=== PATIENT | female | born 1960 | race Caucasian/White ===

== ENCOUNTER 2017-05-17 16:44 | Emergency (ER) | payer BC ==
[~2017-05-17] VITALS: Ht 177.8 cm; Wt 80.0 kg
[2017-05-17 16:46] VITALS: Ht 177.8 cm; Wt 80.0 kg
[2017-05-17] MEDS ORDERED: NITROGLYCERIN 0.4 MG SL PER TAB CHARGE SL STA (16:54)
[2017-05-17] MEDS ORDERED: LORAZEPAM 2 MG/ML 1 ML VIAL IV STA (16:54)
[2017-05-17] MEDS ORDERED: GLUCAGON FOR INJ 1 MG VIAL IV STA (16:54)
[2017-05-17] MEDS ORDERED: SODIUM CHLORIDE 0.9% 500ML 500 ML IV STA (16:54)
--- NOTE | 2017-05-17 17:04 | EMERGENCY ROOM VISIT NOTE ---
History Report prepared by Janice: Norm Santoyo Under the Supervision of: Dr. Edgar Clements M.D. First contact with patient: 16:48 Chief Complaint: FOOD BOLUS Stated Complaint: FOOD STUCK AT BOTTOM OF ESOPHAGUS Nursing Triage Summary: food bolus after eating steak 2 pm History of Present Illness The patient is a 56 year old female who presents to the Emergency Room with complaints of a constant food bolus in her lower esophagus starting around 2 hours ago while eating steak. She currently rates her discomfort as a 3/10 in severity, and she has been spitting up her saliva though not vomiting. The patient states that this has happened before, though it can usually resolve with just drinking water. She states that she has come to the ED twice before for similar episodes. The first time it resolved after medication, and the other time she was scoped. She has had her esophagus dilated in the past. She states that she does not take any medications, and she does not have reflux. The patient additionally notes that she has been having diarrhea for a month. She states that she had a colonoscopy in the past. Source of History: patient Onset: two hours ago Position: other (esophagus) Symptom Intensity: 3/10 Quality: other (food bolus) Timing: constant Associated Symptoms: + diarrhea, No vomiting Note: Associated symptoms: Spitting up Review of Systems See HPI for pertinent positives & negatives. A total of 10 systems reviewed and were otherwise negative. Past Medical & Surgical Medical Problems: (1) Impacted foreign body in esophagus Surgical Problems: (1) H/O: hysterectomy Family History Cancer FH: heart disease FHx: gallbladder disease Hypertension Social History Smoking Status: Never Smoker Alcohol Use: occasionally Housing Status: lives with family Current/Historical Medications Scheduled [Bio-InThrMazyme Forte], 1 CAP PO DAILY Allergies Coded Allergies: Ibuprofen (Unverified Allergy, Mild, 05/17/17) Aspirin (Unverified Adverse Reaction, Severe, STOMACH ACHE, 05/17/17) Physical Exam Vital Signs Date Time Temp Pulse Resp B/P (MAP) Pulse Ox O2 Delivery O2 Flow Rate FiO2 05/17/17 18:01 66 14 133/72 98 Room Air 05/17/17 17:26 84 05/17/17 16:46 36.9 61 18 124/77 99 Physical Exam GENERAL: Patient is in no acute distress. HEENT: Spitting out her saliva. No acute trauma, normocephalic atraumatic, mucous membranes moist, no nasal congestion, no scleral icterus. NECK: No stridor, no adenopathy, no meningismus, trachea is midline. LUNGS: Clear to auscultation bilaterally, no wheeze, no rhonchi, breath sounds equal. HEART: Without murmurs gallops or rubs, regular rate and rhythm. ABDOMEN: Soft, nontender, bowel sounds positive, no hernias, no peritonitis. EXTREMITIES: No cyanosis or edema, full range of motion of all the joints without pain or difficulty, no signs for acute trauma. NEUROLOGIC: Oriented x 3, no acute motor or sensory deficits, no focal weakness. SKIN: No rash, no jaundice, no diaphoresis. Medical Decision & Procedures Medications Administered Medications (Trade) Dose Ordered Sig/Safia Route Start Time Stop Time Status Last Admin Dose Admin Sodium Chloride 500 ml @ 999 mls/hr Q31M STAT IV 05/17/17 16:54 05/17/17 17:24 DC 05/17/17 16:54 999 MLS/HR Lorazepam (Ativan Inj) 1 mg NOW STAT IV 05/17/17 16:54 05/17/17 17:00 DC 05/17/17 16:54 1 MG Glucagon (Glucagon Inj) 2 mg NOW STAT IV 05/17/17 16:54 05/17/17 17:00 DC 05/17/17 16:54 2 MG Nitroglycerin (Nitrostat Tab) 0.4 mg 1654 STAT SL 05/17/17 16:54 05/17/17 17:00 DC 05/17/17 16:54 0.4 MG ED Course 1648: The patient was evaluated in room A9. A complete history and physical exam was performed. 1654: Nitrostat Tab 0.4mg SL, Glucagon Inj 2mg IV, Ativan Inj 1mg IV, Sodium Chloride 500 ml @ 999 mls/hr IV 1742: I revaluated the patient, and I discussed the treatment plan with the patient, and she was agreeable. 1755: I discussed the patient's case with Dr. Mayorga, Gastroenterology, and he is going to take the patient to the endoscopy suite for further treatment. Medical Decision Differential diagnoses include: Esophageal food bolus, esophageal narrowing, esophageal stricture, and reflux. The patient presents with 2 hours of a sensation that her esophagus is blocked. She was eating steak and feels something caught in the lower esophagus. She has had issues with esophageal food boluses in the past and in the past, has had one esophageal dilatation. The patient is spitting out her saliva. She is not short of breath, she did not have any choking episodes. The patient was given IV saline, IV Ativan, IV glucagon and sublingual nitroglycerin, she did not have any relief of her symptoms with this medication. I spoke to the on-call GI doctor. The patient is being taken to the endoscopy suite. Consults Time Called: 1744 Consulting Physician: Dr. Mayorga, Gastroenterology Returned Call: [phone] I discussed the patient's case with Dr. Mayorga, Gastroenterology, and he is going to take the patient to the endoscopy suite. Impression Primary Impression: Esophageal obstruction due to food impaction Scribe Attestation The scribe's documentation has been prepared under my direction and personally reviewed by me in its entirety. I confirm that the note above accurately reflects all work, treatment, procedures, and medical decision making performed by me. Departure Information Dispostion Still a Patient Referrals Raine Harding M.D. (PCP) Patient Instructions My [facility]
[2017-05-17] MEDS ORDERED: [UNRECOGNIZED DRUG - OTHER] PO (18:00)
[2017-05-17 18:01] VITALS: O2SAT 98
--- NOTE | 2017-05-17 19:18 | Gastrointestinal Consultation ---
Gastrointestinal Consultation Date of Consultation: May 17, 2017 Attending Physician: Dr. Clements Consulting Physician: Dr. Mayorga Reason for Consultation: Food Impaction History of Present Illness Patient is a 56 year old female with history of esophageal stricture who presented to the ER this afternoon following a steak dinner. She states that she developed acute dysphagia, and has not been able to tolerate her own secretions. She does complain of excessive salivation at this time. Attempts were made in the ER to have the food bolus pass spontaneously after administration of anxiolytics, however they were not successful. She denies any history of GERD and has not been taking any PPI or H2RA therapy on a daily basis. Past Medical/Surgical History Medical Problems: (1) Esophageal obstruction due to food impaction Status: Acute (2) Food impaction of esophagus Status: Acute Family History Cancer FH: heart disease FHx: gallbladder disease Hypertension Social History Smoking Status: Never Smoker Alcohol Use: occasionally Housing Status: lives with family Allergies Coded Allergies: Ibuprofen (Unverified Allergy, Mild, 05/17/17) Aspirin (Unverified Adverse Reaction, Severe, STOMACH ACHE, 05/17/17) Current Medications Home Meds and Scripts Medications Dose Route/Sig Max Daily Dose Days Date Category [Bio-Immunozyme Forte] 1 Cap PO DAILY 05/17/17 Reported Review of Systems Constitutional: No fever, No chills Eyes: No eye pain ENT: + trouble swallowing, No unusual epistaxis, No pain on swallowing Respiratory: No cough, No sputum, No wheezing Cardiac: No chest pain Abdomen: + vomiting, + dysphagia, No pain, No nausea, No GI bleeding, No jaundice Musculoskeletal: No joint pain Female : No dysuria, No hematuria Psych: No depression symptoms Endo: No fatigue Physical Exam Date Time Temp Pulse Resp B/P (MAP) Pulse Ox O2 Delivery O2 Flow Rate FiO2 05/17/17 18:01 66 14 133/72 98 Room Air 05/17/17 17:26 84 05/17/17 16:46 36.9 61 18 124/77 99 General Appearance: + mild distress Eyes: PERRL, EOMI ENT: hearing grossly normal Neck: supple, no adenopathy Respiratory/Chest: lungs clear Cardiovascular: regular rate, rhythm Abdomen: normal bowel sounds, non tender, soft Impression Patient is a 56 year old female with acute dysphagia with food impaction and history of esophageal stricture. Plan Emergent EGD now Recommend PPI therapy daily as patient has had recurrent food impactions (last Oct 2015) Recommend followup in our office as outpatient for further evaluation and recommendations.
[2017-05-17] MEDS ORDERED: FENTANYL CITRATE INJ 50 MCG/1 ML 2 ML VIAL ONE ×2 (19:26)
[2017-05-17] MEDS ORDERED: SUCCINYLCHOLINE CHLORIDE 20 MG/ML 10 ML VIAL IV ONE (19:44)
[2017-05-17] MEDS ORDERED: PROPOFOL IV EMULSION 10 MG/ML 20 ML VIAL IV ONE ×2 (19:44)
[2017-05-17] MEDS ORDERED: LIDOCAINE HCL 2% 2 ML VIAL (20MG/ML) ONE (19:44)
[2017-05-17] MEDS ORDERED: ONDANSETRON INJ 2 MG/ML 2 ML VIAL ONE (19:44)
--- NOTE | 2017-05-17 19:49 | GI REPORT ---
Procedure Date: 05/17/2017 6:57 PM Procedure: Upper GI endoscopy Indications: Therapeutic procedure, Foreign body in the esophagus Medicines: Monitored Anesthesia Care Complications: No immediate complications. Estimated Blood Loss: Estimated blood loss: none. Procedure: Pre-Anesthesia Assessment: - Prior to the procedure, a History and Physical was performed, and patient medications and allergies were reviewed. The patient's tolerance of previous anesthesia was also reviewed. The risks and benefits of the procedure and the sedation options and risks were discussed with the patient. All questions were answered, and informed consent was obtained. Prior Anticoagulants: The patient has taken no previous anticoagulant or antiplatelet agents. ASA Grade Assessment: E - Emergency. After reviewing the risks and benefits, the patient was deemed in satisfactory condition to undergo the procedure. After obtaining informed consent, the endoscope was passed under direct vision. Throughout the procedure, the patient's blood pressure, pulse, and oxygen saturations were monitored continuously. The scope was introduced through the mouth, and advanced to the second part of duodenum. The upper GI endoscopy was accomplished without difficulty. The patient tolerated the procedure well. Findings: Food was found in the lower third of the esophagus. Removal of food was accomplished with gentle push technique. There was a mild dilation of the distal esophagus. The stomach was normal. The examined duodenum was normal. Impression: - Food in the lower third of the esophagus. Removal was successful. - Normal stomach. - Normal examined duodenum. Recommendation: - Soft diet for 5 days. - Use Protonix (pantoprazole) 40 mg PO daily. - Return to GI office in 2 weeks. Grzegorz Mayorga, 05/17/2017 7:48:04 PM This report has been signed electronically. Note Initiated On: 05/17/2017 6:57 PM I attest to the content of the Intraoperative Record and orders documented therein, exceptions below
--- NOTE | 2017-05-17 19:51 | Discharge Instructions ---
Endoscopy Patient Instructions Date / Procedure(s) Performed May 17, 2017. EGD Allergy Information Coded Allergies: Ibuprofen (Unverified Allergy, Mild, 05/17/17) Aspirin (Unverified Adverse Reaction, Severe, STOMACH ACHE, 05/17/17) Discharge Date / Findings May 17, 2017. Food impaction s/p removal via gentle push technique Mild dilation performed at distal esophagus. Medication Instructions Start Pantoprazole 40mg by mouth each morning 1/2 hour prior to breakfast. Provider Instructions Activity Restrictions - No exercising or heavy lifting for 24 hours. - Do not drink alcohol the day of the procedure. - Do not drive a car or operate machinery until the day after the procedure. - Do not make any important decisions or sign important papers in 24 hours after the procedure. Following Day: - Return to full activity which may include returning to work/school. Diet Start your diet with liquids and light foods (jello, soup, juice, toast). Then eat your usual diet if not nauseated. Treatment For Common After Affects For mild abdominal pain, bloating, or excessive gas: - Rest - Eat lightly - Lie on right side Follow-Up Information Follow-up in my office in 2 weeks. Call for appointment. Anesthesia Information What You Should Know You have had a procedure that required some medicine to reduce anxiety and discomfort. This treatment is called moderate sedation. After receiving the treatment, you may be sleepy, but you will be able to breathe on your own. The effects of the treatment may last for several hours. Follow these instructions along with Activity/Diet recommendations noted above: * Do NOT do anything where dizziness or clumsiness would be dangerous. * Rest quietly at home today, then you can be up and about tomorrow. * Have a responsible person stay with you the rest of today. * You may have had an I.V. today. If so, you may take the dressing off later today. Recommendations Call your doctor if: * Trouble breathing * Continuous vomiting for more than 24 hours * Temperature above 101 degrees * Severe abdominal pain or bloating * Pain not relieved by pain medicine ordered * There is increased drainage or redness from any incision * A large amount of rectal bleeding greater than 2-3 tablespoons. (If you had a polyp/s removed or have hemorrhoids, a small amount of blood - from the rectum is to be expected.) * You have any unanswered questions or concerns. IN THE EVENT OF A SERIOUS EMERGENCY, GO TO THE NEAREST EMERGENCY ROOM Your discharge instructions were prepared by provider Grzegorz Mayorga. Patient Instructions Signature Page No Faustin Patient (or Guardian) Signature/Date: I have read and understand the instructions given to me by my caregivers. Caregiver/RN/Doctor Signature/Date: The above-named patient and/or guardian has received patient instructions on this date. + Original Patient Signature Page (only) stays with chart. Please make copy for patient.
[2017-05-17] MEDS ORDERED: ONDANSETRON INJ 2 MG/ML 2 ML VIAL IV PRN (20:00)
[2017-05-17] MEDS ORDERED: EpHEDrine SULFATE INJ 50 MG/ML AMP IV PRN (20:00)
[2017-05-17] MEDS ORDERED: FENTANYL CITRATE INJ 50 MCG/1 ML 2 ML VIAL IV PRN (20:00)
[2017-05-17] MEDS ORDERED: ATROPINE SULFATE 0.1 MG/ML 5ML SYR IV PRN (20:00)
[2017-05-17 20:32] VITALS: BP 110/71; PULSE 82; TEMP 36.7; O2SAT 95
--- NOTE | 2017-05-17 20:39 | Anesthesiology Progress Note ---
Anesthesia Post Op Note Date & Time May 17, 2017 at 20:39 Vital Signs Pain Intensity: 0 Vital Signs Past 12 Hours Date Time Temp Pulse Resp B/P (MAP) Pulse Ox O2 Delivery O2 Flow Rate FiO2 05/17/17 20:32 36.7 82 18 110/71 95 Room Air 05/17/17 20:30 36.7 76 16 111/72 93 Room Air 05/17/17 20:20 79 16 113/73 93 Room Air 05/17/17 20:10 88 16 114/71 95 Nasal Cannula 2 05/17/17 20:00 98 16 115/75 94 Nasal Cannula 2 05/17/17 19:52 36.6 94 16 116/77 94 Nasal Cannula 2 05/17/17 18:01 66 14 133/72 98 Room Air 05/17/17 17:26 84 05/17/17 16:46 36.9 61 18 124/77 99 Notes Mental Status: alert / awake / arousable, participated in evaluation Pt Amnestic to Procedure: Yes Nausea / Vomiting: adequately controlled Pain: adequately controlled Airway Patency, RR, SpO2: stable & adequate BP & HR: stable & adequate Hydration State: stable & adequate Anesthetic Complications: no major complications apparent
[2017-05-17 21:00] VITALS: BP 110/70; PULSE 72; TEMP 36.6; O2SAT 94
== END 2017-05-17 19:51 | disposition home or self-care (01) ==
LOC: C.EDB 16:45 → C.EDA 19:51
DX: T18.128A Food in esophagus causing other injury, initial encounter (principal); X58.XXXA Exposure to other specified factors, initial encounter; Z90.710 Acquired absence of both cervix and uterus; Z88.6 Allergy status to analgesic agent; Z88.8 Allergy status to other drugs, medicaments and biological substances; Z80.9 Family history of malignant neoplasm, unspecified; Z82.49 Family history of ischemic heart disease and other diseases of the circulatory system; Z83.79 Family history of other diseases of the digestive system

== ENCOUNTER → 2017-12-30 | Outpatient (CLI) | payer OTHER ==
[~2017-12-30] MED LIST: [UNRECOGNIZED DRUG - OTHER] PO
== END | disposition home or self-care (01) ==
LOC: C.LAB1850 12:14
PROVIDERS: ATTEND Family Medicine
DX: M25.562 Pain in left knee (principal); M25.462 Effusion, left knee